=== PATIENT | female | born 1975 | race Caucasian/White ===

== ENCOUNTER 2022-03-08 05:20 | Day surgery (SDC) | payer MEDICAID ==
[~2022-03-08] VITALS: Ht 170.2 cm; Wt 63.5 kg
[2022-03-08] MEDS ORDERED: SIMETHICONE 40 MG/0.6 ML ML ONE (07:07)
[2022-03-08] MEDS ORDERED: MIDAZOLAM HCL 5 MG/5 ML VIAL ONE (07:08)
[2022-03-08] MEDS ORDERED: MEPERIDINE HCL/PF 25 MG/ML DISP.SYRIN ONE ×2 (07:08→07:30)
[2022-03-08 07:09] LABS: HCG,QUAL RESULT NEGATIVE (NEGATIVE)
[2022-03-08] MEDS ORDERED: ONDANSETRON HCL 4 MG/2 ML VIAL IVP ONE (09:35)
[2022-03-08] MEDS ORDERED: ONDANSETRON HCL 4 MG/2 ML VIAL ONE (09:36)
[2022-03-08 10:36] VITALS: BP_SYST 116
== END 2022-03-08 09:55 | disposition home or self-care (01) ==
LOC: SDS 05:20 → SMU 05:20 → SDS 09:55
PROVIDERS: ATTEND Internal Medicine Gastroenterology
DX: Z12.11 Encounter for screening for malignant neoplasm of colon (principal); K62.1 Rectal polyp; K64.9 Unspecified hemorrhoids; Z20.822 Contact with and (suspected) exposure to COVID-19
CPT/HCPCS: 36415 ×2; 45380; 87426; 84703; 88305; 99152; 99153; U0003; G0378; J2250; J2405; J2175